=== PATIENT | male | born 1990 | race African-American/Black ===

== ENCOUNTER 2019-04-09 12:18 | Emergency (ER) | payer BC ==
[~2019-04-09] VITALS: Ht 185.4 cm; Wt 85.0 kg
[2019-04-09] MEDS ORDERED: ACETAMINOPHEN 500MG TABLET PO ONE (13:00)
[2019-04-09] MEDS ORDERED: IBUPROFEN 600MG TABLET PO ONE (13:00)
[2019-04-09 13:25] VITALS: BP 117/81
== END 2019-04-09 13:26 | disposition home or self-care (01) ==
LOC: ER 12:18
DX: G43.909 Migraine, unspecified, not intractable, without status migrainosus (principal); J45.909 Unspecified asthma, uncomplicated
CPT/HCPCS: 99283